=== PATIENT | female | born 1980 | race Caucasian/White ===

== ENCOUNTER → 2023-10-04 | Outpatient (CLI) | payer BC ==
--- NOTE | 2023-10-04 08:26 | MM ---
Reason for Exam: Clinical finding. Last screening mammogram was performed 12 month(s) ago. Patient History: Menarche at age 11. First Full-Term at age 20. Premenopausal. Currently using Hormonal Contraceptives, starting at age 19. Risk Values: Melanie 5 year model risk: 0.7%. NCI Lifetime model risk: 8.6%. Tissue Density: There are scattered fibroglandular densities. Findings: Analyzed By CAD. No significant change from prior exams. Overall Assessment: Negative, BI-RAD 1 Management: Screening Mammogram of both breasts in 1 year. Further clinical management of patient's bilateral breast pain. Results were given to the patient verbally at the time of exam. Patient should continue monthly self-breast exams. A clinical breast exam by your physician is recommended on an annual basis. This exam should not preclude additional follow-up of suspicious palpable abnormalities. Note on Melanie scores and lifetime risk: 1. A Melanie score greater than 3% is considered moderate risk. If this is the case, consider specialist referral to assess eligibility for a risk reducing agent. 2. If overall lifetime risk for the development of breast cancer is 20% or higher, the patient may qualify for future screening with alternating mammogram and breast MRI. Electronically signed and approved by: Kait Graham M.D. Radiologist
== END | disposition home or self-care (01) ==
LOC: RADMAMWWP 07:47
PROVIDERS: ATTEND Obstetrics & Gynecology
DX: R92.323 Mammographic fibroglandular density, bilateral breasts (principal); N64.4 Mastodynia
CPT/HCPCS: 77062; 77066

== ENCOUNTER → 2023-12-09 | Outpatient (CLI) | payer BC ==
[2023-12-09 10:21] VITALS: PULSE 92; RESP 16; TEMP 98
--- NOTE | 2023-12-09 10:27 | P.GSHP ---
History of Present Illness H&P Date: 12/09/23 Chief Complaint: breast pain Candie is a 43 year old female status post bilateral mammogram on 10-04-23 which was BIRAD 1. She has gained 100 pounds over the course of a year. She had been on ozempic and did not tolerate it so she was taken off this, and that is when she gained the weight. She is not having coco pain in her breat at this time. She did have engorgement ant swelling at the time of her periods in September. She is not complaining of any nipple discharge. She has never had surgery on her breast. She has not had any trauma or infection in her breast. Caffeine: ice tea occasional nicotine: none BCP: has been on them for over 20 years, still no them hormones: none Family History: does not know her paternal side maternal side: aunt: melly Hormonal History: menarche: 11 breast fed: no menopause: no hormone: none Surgical History: liver biopsy/ focal nodular hyperplasia Medical history: focal nocular hyperplasia BMI 43.3 Social HIstory: smoke: none alcohol: none drugs: none - Constitutional Constitutional: Reports sweats - EENT Eyes: denies blurred vision, denies pain Ears: deny: decreased hearing, tinnitus Ears, nose, mouth and throat: Reports headache, Denies sore throat - Breasts Breasts: bilateral: as per HPI - Cardiovascular Cardiovascular: Denies chest pain, Denies shortness of breath - Respiratory Respiratory: Denies cough, Denies 7 - Gastrointestinal Gastrointestinal: Denies abdominal pain, Denies diarrhea, Denies nausea, Denies vomiting - Genitourinary (Female) Genitourinary: Denies dysuria, Denies hematuria - Menstruation Menstruation: Reports period normal - Musculoskeletal Musculoskeletal: Reports myalgias - Integumentary Comment: rosacea - Neurological Neurological: Denies numbness, Denies weakness - Psychiatric Psychiatric: Denies anxiety, Denies depression - Endocrine Comment: hypothyroid - Hematologic/Lymphatic Comment: none - Allergic/Immunologic Allergic/Immunologic: Reports seasonal allergies Surgical - Exam - General no distress - Eyes normal ocular movement - ENT no hearing loss - Neck trachea midline - Respiratory normal respiratory effort - Cardiovascular Rhythm: regular Heart Sounds: normal: S1, S2 - Abdomen Abdomen: soft, non tender, no guarding, no rigid, no rebound - Integumentary normal turgor - Neurologic no disoriented, no combative - Musculoskeletal normal gait - Psychiatric oriented to time, oriented to person, oriented to place, speech is normal, memory intact Breast Exam: BRA: 44G Inspection: Bilateral grade 3 ptosis/nevus upper inner quadrant right breast with irregular borders Palpation: Right breast: Multi positional exam fibrocystic changes no dominant masses or nodules of concern Right axilla: No adenopathy of concern Left breast: Multi positional exam fibrocystic changes no dominant masses or nodules of concern Results Impression: Bilateral mammogram reviewed from 10-04-2023 Melanie 5-year risk is 0.7%, NCI lifetime risk 8.6% Mastodynia resolved Fluctuation in weight resulting in increased size in her breast Nevus of concern upper inner right breast Plan: Patient is given a website for the book Solving the Mystery of breast pain Removal of nevus of concern Bilateral mammogram in 1 year Patient is going to start on a diet through her primary care office in the near future CC: Dr. Prajapati
== END | disposition home or self-care (01) ==
LOC: WWCWWP 09:48
PROVIDERS: ATTEND Surgery
DX: D22.5 Melanocytic nevi of trunk (principal)